=== PATIENT | female | born 1945 | race Caucasian/White ===

== ENCOUNTER 2024-06-05 13:54 | Observation (INO) | payer OTHER ==
[~2024-06-05] VITALS: Ht 167.6 cm; Wt 104.1 kg
--- NOTE | 2024-06-05 15:12 | HMCIMG ---
CT ABDOMEN/PELVIS W/O CONTRAST HISTORY: Bilateral flank pain COMPARISON: None TECHNIQUE: Multiple sequential axial images of the abdomen and pelvis were obtained from the dome of the diaphragm through symphysis pubis. Patient was not given contrast through intravenous route. Oral contrast was not given. FINDINGS: No pleural effusion is seen bilaterally. There is no evidence of parenchymal disease or pulmonary nodule of the visualized lower lungs. Degenerative changes of the thoracolumbar spine are present. The heart is not enlarged. A small hiatal hernia is seen. Liver measures 18 cm. There is left adrenal nodule measuring 2 cm suggestive of adrenal adenoma. Postcholecystectomy changes are seen. There is right renal cyst measuring 2.3 cm. Bilateral renal cortical scarring is seen. The liver, spleen, right adrenal gland and pancreas are unremarkable. There is no evidence of hydronephrosis bilaterally. There are bilateral renal stones with the largest in the left kidney measuring 2.7 cm. There is diverticulosis. Fecal material is seen in the colon. There are normal size retroperitoneal and mesenteric lymph nodes. No ascites is seen. Atherosclerotic changes are present. Pelvic sidewalls are symmetric bilaterally. Bladder is poorly distended. IMPRESSION: 1. Left renal nodule measuring 2 cm suggestive adrenal adenoma. No hydronephrosis is seen. There are multiple left renal pelvic stones. Bilateral renal cortical scarring is seen. There is fluid-filled with small bowel loops and colon may be related to enterocolitis. There is diverticulosis. CT was performed with one or more following dose reduction techniques: automated exposure control, adjustment of the mA and kv according to patient's size, or use of a iterative reconstruction technique.
[2024-06-05 16:15] LABS: BASOPHILS # (AUTO) 0.03 K/uL (0.00-0.20); BASOPHILS % (AUTO) 0.4 % (0.0-5.0); EOSINOPHILS # (AUTO) 0.21 K/uL (0.00-0.70); EOSINOPHILS % (AUTO) 2.8 % (0.0-8.0); IMMATURE GRANULOCYTE ABSOLUTE 0.04 K/uL (0-1); LYMPHOCYTES # (AUTO) 1.4 K/uL (1.0-4.8); LYMPHOCYTES % (AUTO) 18.3 % (21.0-51.0); MEAN CORPUSCULAR HEMOGLOBIN 30.3 pg (27.0-33.0); MEAN CORPUSCULAR HGB CONC 33.4 g/dL (32.0-36.0); MEAN CORPUSCULAR VOLUME 90.7 fL (79-99); MONOCYTES % (AUTO) 13.2 % (3.0-13.0); NEUTROPHILS # (AUTO) 4.9 K/uL (1.8-7.7); NEUTROPHILS % (AUTO) 64.8 % (40.0-77.0); PLATELET COUNT (AUTO) 211 K/uL (130-400); RED BLOOD CELL COUNT(AUTO) 4.52 MIL/uL (4.00-5.50); RED CELL DISTRIBUTION WIDTH 12.9 % (11.0-15.5); WHITE BLOOD COUNT (AUTO) 7.6 K/uL (4.8-10.8)
[2024-06-05 16:22] LABS: INR 1.02 (0.85-1.15); PROTHROMBIN TIME 10.8 SEC (9.6-11.6)
[2024-06-05 16:23] LABS: PARTIAL THROMBOPLASTIN TIME 26.5 SEC (26.3-35.5)
[2024-06-05 16:28] LABS: APPEARANCE,URINE CLOUDY (CLEAR); BILIRUBIN,URINE NEGATIVE (NEGATIVE); COLOR,URINE YELLOW (YELLOW); GLUCOSE, URINE (UA) NEGATIVE (NEGATIVE); KETONES,URINE NEGATIVE (NEGATIVE); LEUKOCYTE ESTERASE ,URINE 500 Leu/uL (NEGATIVE); NITRATE,URINE NEGATIVE (NEGATIVE); OCCULT BLOOD,URINE MODERATE (NEGATIVE); PROTEIN,URINE 70 mg/dL (NEGATIVE)
[2024-06-05 16:36] LABS: ALBUMIN 3.4 g/dL (3.5-5.0); BILIRUBIN,DIRECT 0.1 mg/dL (0.0-0.3); BILIRUBIN,TOTAL 0.5 mg/dL (0.2-1.0); CREATININE 0.8 mg/dL (0.5-1.0); TOTAL PROTEIN, SERUM 7.1 g/dL (6.0-8.3)
[2024-06-05 16:41] LABS: BACTERIA,URINE RARE /HPF (None Seen); MUCUS,URINE MOD LPF (None Seen); NON-SQUAMOUS EPITHELIAL CELL 4 /HPF (0-2); OTHER CASTS, URINE 3 /LPF (None Seen); RBC,URINE 26-50 /HPF (0-1); SQUAMOUS EPITHELIAL CELL,UR MOD /HPF (0-2); WBC,URINE 26-50 /HPF (0-1)
--- NOTE | 2024-06-05 16:56 | ERN ---
ED Note History of Present Illness Stated Complaint: DIARRHEA Chief Complaint: Flank Pain Time Seen by MD: 14:04 Time Seen by Midlevel: 14:04 Dictation: 78-year-old female with a history of kidney stones presents to the ED for evaluation of left flank pain onset two days ago. Patient is complaining of hematuria, vomiting, and diarrhea, but denies any chest pain, shortness of breath or any other associated symptoms at this time. PMHx kidney stones, gout, HTN Allergies: Coded Allergies: acetaminophen (Unverified Allergy, Intermediate, 06/05/24) hydrocodone (Unverified Allergy, Intermediate, 06/05/24) ketorolac (Unverified Allergy, Mild, RASH, 06/05/24) Home Meds Reported Medications Allopurinol (Allopurinol) 100 Mg Tablet, 1 TAB PO DAILY for 30 Days, #30 TAB 0 Refills 06/05/24 Metoprolol Tartrate (Metoprolol Tartrate) 25 Mg Tablet, 1 TAB PO BID for 30 Days, #60 TAB 0 Refills 06/05/24 Hydrochlorothiazide (Hydrochlorothiazide) 25 Mg Tablet, 25 MG PO BID, TAB 06/05/24 Past Medical History Past Medical History: Hypertension, Kidney Infection, Kidney Stone, Pancreatitis, Other Additional Past Medical Hx: GOUT Surgical History: Appendectomy, Cholecystectomy, Other Surgical History Other: HERNIA Review of System Dictation Constitutional: Negative for fever,chills, and weight loss Eyes: Negative for injury, pain,redness, and discharge ENT: Negative for injury,pain or swelling Cardiovascular: Negative for chest pain, palpitations, and edema Respiratory: Negative for shortness of breath, cough, and wheezing, Abdomen/GI: Positive for flank pain, vomiting, diarrhea Back: Negative for injury and pain : Positive for hematuria Negative for injury and discharge MS/Extremity: Negative for injury and deformity Skin: Negative for rash, and discoloration Neuro: Negative for headache, weakness, numbness, tingling, and seizure Psych: Negative for suicide ideation, homicidal ideation, and hallucinations Initial Vital Sign VS Vital Signs Date Time Temp Pulse Resp B/P (MAP) Pulse Ox O2 Delivery O2 Flow Rate FiO2 06/05/24 14:19 99.9 87 20 133/68 96 Room Air 0 Physical Exam Dictation General: awake, alert, NAD Head/Face: Normocephalic, atraumatic Eyes: PERRL, EOMI, normal conjunctiva ENT: oral cavity clear, no signs of infection Neck: Supple, normal range of motion Cardiovascular: RRR, normal S1/S2 Respiratory: CTAB, no respiratory distress, no rales or wheezes Abdomen: Left CVA tenderness, non-distended, no abdominal tenderness, no guarding or rebound. Skin: Warm, dry, normal turgor, no rash MS/Extremity: Pulses equal, no cyanosis, neurovascular intact, FROM Neuro: COAx4, GCS 15, no neurological deficits, normal gait Psych: Normal behavior, mood, and affect normal Results (Laboratory/Radiology) Laboratory/Radiology Laboratory Tests Test 06/05/24 15:50 06/05/24 15:58 Urine Color YELLOW (YELLOW) Urine Appearance CLOUDY (CLEAR) H Urine pH 6.0 (5.0-8.0) Urine Specific [place] 1.028 (1.001-1.031) Urine Protein 70 mg/dL (NEGATIVE) H Urine Glucose (UA) NEGATIVE mg/dL (NEGATIVE) Urine Ketones NEGATIVE mg/dL (NEGATIVE) Urine Occult Blood MODERATE (NEGATIVE) H Urine Nitrate NEGATIVE (NEGATIVE) Urine Bilirubin NEGATIVE mg/dL (NEGATIVE) Urine Urobilinogen 2.0 mg/dL (0.2-1.0) H Urine Leukocyte Esterase 500 Randy/uL (NEGATIVE) H Urine RBC 26-50 /HPF (0-1) H Urine WBC 26-50 /HPF (0-1) H Urine Squamous Epithelial Cells MOD /HPF (0-2) Urine Non-Squamous Epithelial Cells 4 /HPF (0-2) Urine Bacteria RARE /HPF (None Seen) Urine Hyaline Casts 2-5 /LPF (0-1 /LPF) H Urine Other Casts 3 /LPF (None Seen) White Blood Count 7.6 K/uL (4.8-10.8) Red Blood Count 4.52 MIL/uL (4.00-5.50) Hemoglobin 13.7 g/dL (12.0-16.0) Hematocrit 41.0 % (36-48) Mean Corpuscular Volume 90.7 fL (79-99) Mean Corpuscular Hemoglobin 30.3 pg (27.0-33.0) Mean Corpuscular Hemoglobin Concent 33.4 g/dL (32.0-36.0) Red Cell Distribution Width 12.9 % (11.0-15.5) Platelet Count 211 K/uL (130-400) Mean Platelet Volume 9.3 fL (7.5-10.5) Immature Granulocyte % (Auto) 0.5 % (0-1) Neutrophils (%) (Auto) 64.8 % (40.0-77.0) Lymphocytes (%) (Auto) 18.3 % (21.0-51.0) L Monocytes (%) (Auto) 13.2 % (3.0-13.0) H Eosinophils (%) (Auto) 2.8 % (0.0-8.0) Basophils (%) (Auto) 0.4 % (0.0-5.0) Neutrophils # (Auto) 4.9 K/uL (1.8-7.7) Lymphocytes # (Auto) 1.4 K/uL (1.0-4.8) Monocytes # (Auto) 1.0 K/uL (0.1-1.0) Eosinophils # (Auto) 0.21 K/uL (0.00-0.70) Basophils # (Auto) 0.03 K/uL (0.00-0.20) Absolute Immature Granulocyte (auto 0.04 K/uL (0-1) Nucleated Red Blood Cells 0.0 % (0.0-0.19) Prothrombin Time 10.8 SEC (9.6-11.6) Prothromb Time International Ratio 1.02 (0.85-1.15) Activated Partial Thromboplast Time 26.5 SEC (26.3-35.5) Sodium Level 141 mmol/L (136-145) Potassium Level 3.0 mmol/L (3.5-5.1) *L Chloride Level 103 mmol/L (101-111) Carbon Dioxide Level 31 mmol/L (21-32) Blood Urea Nitrogen 19 mg/dL (7-18) H Creatinine 0.8 mg/dL (0.5-1.0) Glomerular Filtration Rate Calc 76 mL/min (>90) Random Glucose 108 mg/dL (70-105) H Total Calcium 9.4 mg/dL (8.5-10.1) Total Bilirubin 0.5 mg/dL (0.2-1.0) Direct Bilirubin 0.1 mg/dL (0.0-0.3) Aspartate Amino Transf (AST/SGOT) 30 U/L (10-37) Alanine Aminotransferase (ALT/SGPT) 25 U/L (12-78) Alkaline Phosphatase 76 U/L (50-136) Total Protein 7.1 g/dL (6.0-8.3) Albumin 3.4 g/dL (3.5-5.0) L Lipase 22 U/L (16-77) Labs Reviewed?: Yes CT Scan Comment: REASON: L flank pain ORDERING PHYSICIAN: ISAIAS MEYERS PROCEDURE: ABD PEL WO - CT ABDOMEN/PELVIS W/O CONTRAST CT ABDOMEN/PELVIS W/O CONTRAST HISTORY: Bilateral flank pain COMPARISON: None TECHNIQUE: Multiple sequential axial images of the abdomen and pelvis were obtained from the dome of the diaphragm through symphysis pubis. Patient was not given contrast through intravenous route. Oral contrast was not given. FINDINGS: No pleural effusion is seen bilaterally. There is no evidence of parenchymal disease or pulmonary nodule of the visualized lower lungs. Degenerative changes of the thoracolumbar spine are present. The heart is not enlarged. A small hiatal hernia is seen. Liver measures 18 cm. There is left adrenal nodule measuring 2 cm suggestive of adrenal adenoma. Postcholecystectomy changes are seen. There is right renal cyst measuring 2.3 cm. Bilateral renal cortical scarring is seen. The liver, spleen, right adrenal gland and pancreas are unremarkable. There is no evidence of hydronephrosis bilaterally. There are bilateral renal stones with the largest in the left kidney measuring 2.7 cm. There is diverticulosis. Fecal material is seen in the colon. There are normal size retroperitoneal and mesenteric lymph nodes. No ascites is seen. Atherosclerotic changes are present. Pelvic sidewalls are symmetric bilaterally. Bladder is poorly distended. IMPRESSION: 1. Left renal nodule measuring 2 cm suggestive adrenal adenoma. No hydronephrosis is seen. There are multiple left renal pelvic stones. Bilateral renal cortical scarring is seen. There is fluid-filled with small bowel loops and colon may be related to enterocolitis. There is diverticulosis. CT was performed with one or more following dose reduction techniques: automated exposure control, adjustment of the mA and kv according to patient's size, or use of a iterative reconstruction technique. DICTATED BY: SAHIL FIORE MD DATE: 06/05/24 1505 ED Course ED Course Orders Procedure Category Date Status Time Cbc With Differential LAB 06/05/24 Complete 14:32 Basic Metabolic Panel LAB 06/05/24 Complete 14:32 Hepatic Function Panel LAB 06/05/24 Complete 14:32 Urinalysis LAB 06/05/24 Complete W/Microscopic 14:32 Pt And Ptt LAB 06/05/24 Complete 14:32 Ct Abdomen/Pelvis W/O CT 06/05/24 Resulted Contrast 14:34 Lipase LAB 06/05/24 Complete 14:32 Culture Urine CHATO 06/05/24 In Process 16:36 Potassium Bicarb/Cit PHA 06/05/24 Complete Ac 25meq (K-Lyte Ta 17:00 Ketorolac PHA 06/05/24 Complete Tromethamine 15mg/Ml 17:00 Ceftriaxone 1g Vial PHA 06/05/24 Complete (Rocephine 1g Inj) 17:00 0.9%Nacl 1000ml (Ns PHA 06/05/24 Complete 1000ml) 17:00 Vital Signs(Adult CPOE 06/05/24 Transmitted Hospitalist) 19:17 Daily Weights CPOE 06/05/24 Transmitted 19:17 I&O Q Shift CPOE 06/05/24 Transmitted 19:17 Acetaminophen 325 Tab PHA 06/05/24 In Process (Tylenol 325mg Tab 19:30 Acetaminophen 325 Tab PHA 06/05/24 In Process (Tylenol 325mg Tab 19:30 Ondansetron 4mg Inj PHA 06/05/24 In Process (Zofran 4mg Inj) 19:30 Nurse To Enter Home CPOE 06/05/24 Transmitted Medication 19:17 Admit Orders ADM 06/05/24 Transmitted 19:17 Condition: CPOE 06/05/24 Transmitted 19:17 Activity: Br W/Brp CPOE 06/05/24 Transmitted With Assist 19:17 Heart Healthy Diet DIET 06/06/24 Transmitted Breakfast Apply Scds CPOE 06/05/24 Transmitted 19:17 0.9%Nacl 1000ml (Ns PHA 06/05/24 In Process 1000ml) 19:30 Ceftriaxone 1g Vial PHA 06/05/24 Complete (Rocephine 1g Inj) 21:00 Famotidine 20mg Vial PHA 06/05/24 In Process (Pepcid 20mg Vial) 21:00 Magnesium 2gm Premix PHA 06/05/24 In Process 50ml (Magnesium 2gm 19:30 Initiate Po RIO 06/05/24 In Process Hypokalemia Protoc 19:17 Potassium Chloride PHA 06/05/24 In Process 20meq/100ml ([place] 19:30 Potassium Chl 10% PHA 06/05/24 In Process Elixir 20meq (Kcl 10% 19:30 Potassium Chloride PHA 06/05/24 In Process 20meq Er (K-Dur/Klor- 19:30 Notify Physician If CPOE 06/05/24 Transmitted There Is 19:17 Notify Md On The Next CPOE 06/05/24 Transmitted 19:17 Notify Md On The CPOE 06/05/24 Transmitted Next(Cont.) 19:17 Urology Consult CONPHYSVC 06/05/24 Transmitted 19:17 Cbc With Differential LAB 06/06/24 Verified 04:00 Comprehensive LAB 06/06/24 Verified Metabolic Panel 04:00 Magnesium LAB 06/06/24 Verified 04:00 Stool Panel Gi By Pcr LAB 06/05/24 Logged 19:17 Ova And Parasite CHATO 06/05/24 Logged 19:17 Ceftriaxone 1g Vial PHA 06/05/24 In Process (Rocephine 1g Inj) 21:00 Current Medications Medications (Trade) Dose Ordered Sig/Con Route PRN Reason Start Time Stop Time Status Last Admin Dose Admin Ceftriaxone Sodium (ROCEphine 1G INJ) 1 gm ONCE ONCE IVPB 06/05/24 17:00 06/05/24 17:01 DC 06/05/24 17:37 Ketorolac Tromethamine (toRADol) 15 mg ONCE ONCE IV 06/05/24 17:00 06/05/24 17:01 DC Potassium Bicarbonate (K-Lyte Tablet Eff 25 Meq Tablet.eff) 50 meq ONCE ONCE PO 06/05/24 17:00 06/05/24 17:01 DC 06/05/24 17:37 Sodium Chloride 1,000 ml @ 0 mls/hr ONCE ONCE IV 06/05/24 17:00 06/05/24 17:01 DC 06/05/24 17:37 Vital Signs Date Time Temp Pulse Resp B/P (MAP) Pulse Ox O2 Delivery O2 Flow Rate FiO2 06/05/24 14:19 99.9 87 20 133/68 96 Room Air 0 Medical Decision Making MDM MDM: Differential diagnosis: Kidney stones, diarrhea, flank pain, UTI Rationale: 78-year-old female with a history of kidney stones presents to the ED for evaluation of left flank pain onset two days ago. Patient is complaining of hematuria, vomiting, and diarrhea, but denies any chest pain, shortness of breat h or any other associated symptoms at this time. PMHx kidney stones, gout, HTN Per physical examination patient has left CVA tenderness, in no acute distress. Labs indicated no elevated WBC, potassium 3.0, UA indicates urinary tract infection. Patient was administered K-Lyte ketorolac, Rocephin, and IV fluids in the ED. CT abdomen and pelvis obtained indicating left kidney nodule measuring 2 cm possible adrenal adenoma, renal cyst measuring 2.3 cm, and bilateral kidney stones in the kidney largest measuring 2.7 cm. Patient was educated on findings, diagnosis, and decision for admission. Patient verbalized understanding and agrees with admission. Case was discussed with hospitalist who accepted admission. Risk of complication and/or morbidity or mortality of patient management: None Medications-Per medication reconciliation Need for hospitalization: Patient does meet criteria for hospitalization. Need for emergency major/minor surgery: No There are no social concerns with this patient. I independently interpreted the test that were performed, results were reviewed by me and considered findings on radiology if ordered. Medical management and examination interpretation discussions were had by me with other qualified healthcare professionals as indicated for the patient's care. DX & DISP Disposition: Inpatient Decision to Admit Date: Jun 05, 2024 Departure Impression: Primary Impression: Urinary tract infection Additional Impressions: Pyelonephritis, Nephrolithiasis, Hypokalemia, Diarrh ea, Mild dehydration Condition: Stable Referrals: NONE (PCP) I have reviewed, & agreed with my scribe's, documentation. (I, Hayden Guzman, am scribing for CRISSY Meyers) I performed the substantive portion of the visit. I have reviewed and personally made and approve the management plan that is documented in the notes by myself or the RUPINDER. I acknowledge full responsibility for the patient's management plan. I personally scribed for ISAIAS MEYERS ([email or web address]) on 06/05/24 at 16:56. Electronically submitted by Hayden Guzman ([email or web address]). I personally scribed for ISAIAS MEYERS ([email or web address]) on 06/05/24 at 16:57. Electronically submitted by Hayden Guzman ([email or web address]). ISAIAS MEYERS Jun 05, 2024 16:56 MILAGROS NOBLE MD Jun 05, 2024 18:41
[2024-06-05] MEDS: PoTASSium BIcarbonate/CIT AC 25 MEQ TABLET.EFF PO ONE (17:37)
[2024-06-05] MEDS: 0.9%NACL 1000ML 1,000 ML IV ONE (17:37)
[2024-06-05] MEDS: cefTRIAXone 1G VIAL IVPB ONE (17:37)
[2024-06-05] MEDS: ketOROlac 15MG/ML VIAL (15MG/ML) IV ONE (17:44)
--- NOTE | 2024-06-05 18:50 | NUR ---
[facility]OSPITALIST AT BEDSIDE FOR ADMISSION. PT IS AOX4 DENIES PAIN AT THIS TIME.
[2024-06-05] MEDS ORDERED: METO25TA6 PO (18:59)
[2024-06-05] MEDS ORDERED: HYDR25TA PO (18:59)
[2024-06-05] MEDS ORDERED: ALLO100T PO (18:59)
--- NOTE | 2024-06-05 19:28 | HP ---
[facility] HISTORY AND PHYSICAL Date of Service: Jun 05, 2024 Time of Service: 19:28 PCP: Self-referral HISTORY OF PRESENT ILLNESS: This is a 78-year-old female winter [place] from [facility] [place] , a retired nurse by profession with past medical history of hypertension, kidney stone and gout who presents to the ED for complaints of left flank pain, nausea, vomiting, diarrhea which started three days ago. Patient states she has not been able to keep anything down for the past three days. Patient reports approximately she has 13 episodes of diarrhea and vomiting at the same time for the past three days nausea vomiting and diarrhea has stopped until 1:00 a.m. today she said. Patient denies any unusual food consumption. Seen and examined patient in the ER awake alert and coherent, appears comfortable. Patient reports she has pressure around the suprapubic area on palpation. Patient denies fever, cough, chest pain, palpitation and shortness of breaths. Latest vital signs temperature 99.9, heart rate 87, blood pressure 133/68 saturation 96% on room air. Labs: CBC unremarkable. Potassium 3.0, BUN 19, glucose 108, albumin 3.4. Urinalysis consistent with urinary tract infection. CT abdomen and pelvis without contrast result revealed left renal nodule measuring 2 cm suggestive adrenal adenoma. No hydronephrosis is seen. There are multiple left renal pelvic stones. Bilateral renal cortical scarring is seen. There is fluid-filled with small bowel loops and colon may be related to enterocolitis. There is diverticulosis. While in the ER patient received 1 L IV NS bolus, Rocephin 1 g IV, Toradol 15 mg IV, K-Lyte 50 mEq p.o. ER called and recommended to admit the patient. REVIEW OF SYSTEMS CONSTITUTIONAL: Denies fevers, chills, or night sweats. No unintentional weight loss reported. NEUROLOGICAL: Denies headache, amaurosis fugax, motor weakness, sensory deficit, vertigo/spinning sensation, gait abnormalities, or tremors. ENT: No hearing loss, otalgia, otorrhea, rhinitis, rhinorrhea, hoarseness, or sore throat. CARDIOVASCULAR: Denies any exertional angina, dyspnea on exertion, orthopnea, paroxysmal nocturnal dyspnea, palpitations, life-threatening arrhythmias, claudication. PULMONARY: Denies any shortness of breath, cough, phlegm/sputum, hemoptysis, pleuritic chest pain. SLEEP: Denies morning headaches, daytime somnolence or napping. Denies difficu lty falling asleep, staying asleep, waking from sleep. Denies knowledge of snoring. GASTROINTESTINAL: Complained of suprapubic pressure on palpation, nausea, vomiting and diarrhea Denies any type of dysphagia to either liquids or solids. Denies pyrosis, early satiety, constipation, or changes in stool consistency or caliber. Denies coffee-ground emesis, hematemesis, hematochezia, or melanotic stools. GENITOURINARY: Denies frequency, urgency, nocturia, hematuria or incontinence (Storage/Irritative symptoms.) Low urinary stream, straining to void, urinary intermittency or hesitancy, splitting of the voiding stream, terminal dribbling. ENDOCRINOLOGIC: Denies polyuria, polydipsia, polyphagia or heat/cold intolerances. HEMATOLOGIC: Denies thrombophilia/previous clots, or coagulopathy/bleeding disorders. ONCOLOGIC: Denies personal history of malignancy. DERMATOLOGIC: Denies rashes or pruritus. PSYCHIATRIC: Denies any suicidal or homicidal ideation. Denies hallucinations. PAST MEDICAL HISTORY: Hypertension , kidney stone and gout PAST SURGICAL HISTORY: Tonsillectomy, adenoidectomy, appendectomy, cholecystectomy, umbilical hernia repair, left kidney surgery [place] [age] PAST SOCIAL HISTORY: Patient lives with . Patient is a winter [place] from [place]. Patient is a retired nurse. Patient denies alcohol tobacco and recreational drug use. FAMILY HISTORY: Noncontributory Coded Allergies: acetaminophen (Unverified Allergy, Intermediate, 06/05/24) hydrocodone (Unverified Allergy, Intermediate, 06/05/24) ketorolac (Unverified Allergy, Mild, RASH, 06/05/24) PHYSICAL EXAM GENERAL APPEARANCE: The patient is awake, alert, and oriented, in no acute cardiopulmonary distress. NEUROLOGICAL: Cranial nerves II-XII grossly intact. Motor is 5/5 in bilateral upper and lower extremities proximal to distal. No sensory deficits. HEENT: Face is symmetric. Pupils are equal and reactive. Extraocular movements are intact. NECK: Supple. No JVD. No thyromegaly. No submental, submandibular, pre- /postauricular, occipital or supraclavicular lymphadenopathy. CHEST: Normal chest expansion. No Telemetry. LUNGS: Absence of any rales, rhonchi or any wheezing. CARDIOVASCULAR: Regular. S1 and S2 normal. No appreciable rubs, murmurs or gallops. ABDOMEN: Soft, nontender, and nondistended. There is no rebound, voluntary guarding, or rigidity. : Deferred. No Silva. EXTREMITIES: Non-edematous and not cyanotic. No clubbing. Good capillary refill. SKIN: No skin breakdown. Vital Sign (Last 24 Hours) 06/05/24 14:19 Temp 99.9 Pulse 87 Resp 20 B/P (MAP) 133/68 Pulse Ox 96 O2 Delivery Room Air O2 Flow Rate 0 LABS: Laboratory: Test 06/05/24 15:58 06/05/24 15:50 Range/Units White Blood Count 7.6 4.8-10.8 K/uL Red Blood Count 4.52 4.00-5.50 MIL/uL Hemoglobin 13.7 12.0-16.0 g/dL Hematocrit 41.0 36-48 % Mean Corpuscular Volume 90.7 79-99 fL Mean Corpuscular Hemoglobin 30.3 27.0-33.0 pg Mean Corpuscular Hemoglobin Concent 33.4 32.0-36.0 g/dL Red Cell Distribution Width 12.9 11.0-15.5 % Platelet Count 211 130-400 K/uL Mean Platelet Volume 9.3 7.5-10.5 fL Immature Granulocyte % (Auto) 0.5 0-1 % Neutrophils (%) (Auto) 64.8 40.0-77.0 % Lymphocytes (%) (Auto) 18.3 L 21.0-51.0 % Monocytes (%) (Auto) 13.2 H 3.0-13.0 % Eosinophils (%) (Auto) 2.8 0.0-8.0 % Basophils (%) (Auto) 0.4 0.0-5.0 % Neutrophils # (Auto) 4.9 1.8-7.7 K/uL Lymphocytes # (Auto) 1.4 1.0-4.8 K/uL Monocytes # (Auto) 1.0 0.1-1.0 K/uL Eosinophils # (Auto) 0.21 0.00-0.70 K/uL Basophils # (Auto) 0.03 0.00-0.20 K/uL Absolute Immature Granulocyte (auto 0.04 0-1 K/uL Nucleated Red Blood Cells 0.0 0.0-0.19 % Prothrombin Time 10.8 9.6-11.6 SEC Prothromb Time International Ratio 1.02 0.85-1.15 Activated Partial Thromboplast Time 26.5 26.3-35.5 SEC Sodium Level 141 136-145 mmol/L Potassium Level 3.0 *L 3.5-5.1 mmol/L Chloride Level 103 101-111 mmol/L Carbon Dioxide Level 31 21-32 mmol/L Blood Urea Nitrogen 19 H 7-18 mg/dL Creatinine 0.8 0.5-1.0 mg/dL Glomerular Filtration Rate Calc 76 >90 mL/min Random Glucose 108 H 70-105 mg/dL Total Calcium 9.4 8.5-10.1 mg/dL Total Bilirubin 0.5 0.2-1.0 mg/dL Direct Bilirubin 0.1 0.0-0.3 mg/dL Aspartate Amino Transf (AST/SGOT) 30 10-37 U/L Alanine Aminotransferase (ALT/SGPT) 25 12-78 U/L Alkaline Phosphatase 76 50-136 U/L Total Protein 7.1 6.0-8.3 g/dL Albumin 3.4 L 3.5-5.0 g/dL Lipase 22 16-77 U/L Urine Color YELLOW YELLOW Urine Appearance CLOUDY H CLEAR Urine pH 6.0 5.0-8.0 Urine Specific [place] 1.028 1.001-1.031 Urine Protein 70 H NEGATIVE mg/dL Urine Glucose (UA) NEGATIVE NEGATIVE mg/dL Urine Ketones NEGATIVE NEGATIVE mg/dL Urine Occult Blood MODERATE H NEGATIVE Urine Nitrate NEGATIVE NEGATIVE Urine Bilirubin NEGATIVE NEGATIVE mg/dL Urine Urobilinogen 2.0 H 0.2-1.0 mg/dL Urine Leukocyte Esterase 500 H NEGATIVE Randy/uL Urine RBC 26-50 H 0-1 /HPF Urine WBC 26-50 H 0-1 /HPF Urine Squamous Epithelial Cells MOD 0-2 /HPF Urine Non-Squamous Epithelial Cells 4 0-2 /HPF Urine Bacteria RARE None Seen /HPF Urine Hyaline Casts 2-5 H 0-1 /LPF /LPF Urine Other Casts 3 None Seen /LPF DIAGNOSTICS / RADIOLOGY: [ ] ASSESSMENT: Acute urinary tract infection with hematuria POA Left kidney stone POA Possible enterocolitis POA Dehydration POA Left adrenal adenoma per CT POA Hypertension POA Gout POA History of kidney stone with left kidney surgery POA PLAN: We will admit patient in medical surgical We will start on heart healthy diet We will start NS @ 100 ml / hr x2 bags and re evaluate We will start patient on Rocephin 1 g IV b.i.d. for empiric coverage We will start on Famotidine 20 mg IV bid for GI prophylaxis We will replace electrolytes as needed per protocol We will add prn medication for fever,pain,cough ,nausea and vomiting We will reconcile home meds once medlist available We will request stool GI panel ova and parasite and follow-up result We will seek Urology consultation We will request labs in am Further orders to follow depending on above results Case discussed with attending physician and came up with above treatment and plan of care. ADVANCED CARE PLANNING 1. Which of the following were discussed? Hospice Care - No Therapeutic options - Yes Advance Directives - No Other discussions - 2. Discussed with who? Patient 3. Voluntary nature of this service was explained to the patient? Yes 4. Amount of time spent - _22 5. Reviewed by Physician? (if this service was performed by NPP) Yes Patient seen and examined by me. Agree with note by JUNIOR TECHNICAL WRITER SEE ADDITIONAL ORDERS PER CHART DISCUSSED WITH NURSING STAFF HARRIETT RODP Jun 05, 2024 19:28
[2024-06-05] MEDS ORDERED: acetaMINOPHEN 325 MG TAB PO PRN ×2 (19:30)
[2024-06-05] MEDS ORDERED: MAGNESIUM 2GM PREMIX 50ML 50 ML IV PRN (19:30)
[2024-06-05] MEDS ORDERED: PoTASSium chl 10% ELIXIR 20MEQ 20 MEQ/15 ML UDCUP PO PRN (19:30)
[2024-06-05] MEDS: cefTRIAXone 1G VIAL IVPB SCH (19:54)
[2024-06-05] MEDS: FAMOTIDINE 20MG VIAL IV SCH (19:59)
[2024-06-05] MEDS: 0.9%NACL 1000ML 1,000 ML IV SCH (19:59)
[2024-06-05] MEDS ORDERED: cefTRIAXone 1G VIAL 1 GM in 0.9%NACL 50ML 50 ML IV SCH (21:00)
[2024-06-06] VITALS (7 sets, daily range): BP systolic 100–150; BP diastolic 43–67; PULSE 68–113; RESP 16–20; TEMP 97.3–98.2; O2SAT 94–98
[2024-06-06] MEDS: DIPHENOXYLATE HCL/ATROPINE 2.5/0.025 MG TAB PO ONE (00:20)
[2024-06-06] MEDS ORDERED: HYDR12.54 PO (03:13)
[2024-06-06] MEDS ORDERED: ZINC220T4 PO (03:17)
[2024-06-06] MEDS ORDERED: BIOT5000 PO (03:17)
[2024-06-06] MEDS ORDERED: VITA1CAP PO (03:17)
[2024-06-06 06:57] LABS: BASOPHILS # (AUTO) 0.02 K/uL (0.00-0.20); BASOPHILS % (AUTO) 0.3 % (0.0-5.0); EOSINOPHILS % (AUTO) 2.9 % (0.0-8.0); IMMATURE GRANULOCYTE ABSOLUTE 0.04 K/uL (0-1); LYMPHOCYTES # (AUTO) 2.3 K/uL (1.0-4.8); LYMPHOCYTES % (AUTO) 32.8 % (21.0-51.0); MEAN CORPUSCULAR HEMOGLOBIN 30.5 pg (27.0-33.0); MEAN CORPUSCULAR HGB CONC 33.3 g/dL (32.0-36.0); MEAN CORPUSCULAR VOLUME 91.4 fL (79-99); MONOCYTES # (AUTO) 0.9 K/uL (0.1-1.0); MONOCYTES % (AUTO) 13.1 % (3.0-13.0); NEUTROPHILS # (AUTO) 3.5 K/uL (1.8-7.7); NEUTROPHILS % (AUTO) 50.3 % (40.0-77.0); PLATELET COUNT (AUTO) 172 K/uL (130-400); RED BLOOD CELL COUNT(AUTO) 3.94 MIL/uL (4.00-5.50); RED CELL DISTRIBUTION WIDTH 12.9 % (11.0-15.5); WHITE BLOOD COUNT (AUTO) 6.9 K/uL (4.8-10.8)
[2024-06-06 07:13] LABS: ALBUMIN 2.8 g/dL (3.5-5.0); BILIRUBIN,TOTAL 0.7 mg/dL (0.2-1.0); CREATININE 0.7 mg/dL (0.5-1.0); MAGNESIUM 1.5 mg/dL (1.80-2.40); TOTAL PROTEIN, SERUM 5.7 g/dL (6.0-8.3)
[2024-06-06 07:37] LABS: POTASSIUM 2.7 mmol/L (3.5-5.1)
[2024-06-06] MEDS: PoTASSium chloRIDE 20MEQ/100ML 100 ML IV PRN (08:06)
--- NOTE | 2024-06-06 10:06 | NUR ---
DCP Patient states visiting son, Sapphire Monteiro, Daughter in Law [phone] unit August 2024; staying in a house with walk in shower. 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 States States able to complete ADL's on her own. Denies medical devices. Denies home health services, home care provider or dialysis. PCP - [facility] - Jeannette Haro. Upon discharge, Sapphire Monterio, Viviane in Law [phone] and family will assist with care as needed. Addendum: 06/06/24 at 1012 by NAYAN PEREZ RN Amended: Links added.
--- NOTE | 2024-06-06 10:33 | NUR ---
PROVIDER NOTIFICATION: UROLOGY CONSULT Notified physician office of urology consult. Name and phone number of nurse left with office. Pending call back
[2024-06-06] MEDS: ondanSETRON 4MG INJ IV PRN (11:29)
[2024-06-06] MEDS: PoTASSium chloRIDE 20MEQ ER 20 MEQ ERTAB PO PRN (11:29)
[2024-06-06] MEDS ORDERED: hydrALAZine 20MG/ML VIAL IV PRN (11:30)
[2024-06-06] MEDS: MAGNESIUM 2GM PREMIX 50ML 50 ML IV SCH (12:40)
--- NOTE | 2024-06-06 14:23 | PN ---
[facility] PROGRESS NOTE Date of Service: Jun 06, 2024 Time of Service: 14:13 SUBJECTIVE: [ ] This is a 78-year-old female that presents in ED on 06/05/2024 with chief complaints of left flank pain nausea and vomiting and diarrhea. ER workup was consistent with left kidney stone. Urology was consulted we will follow his recommendations. We will replace electrolytes. Patient is fully awake alert oriented x3. Discussed plan of care verbalized understanding. REVIEW OF SYSTEMS CONSTITUTIONAL: Denies fevers, chills, or night sweats. No unintentional weight loss reported. NEUROLOGICAL: Denies headache, amaurosis fugax, motor weakness, sensory deficit, vertigo/spinning sensation, gait abnormalities, or tremors. ENT: No hearing loss, otalgia, otorrhea, rhinitis, rhinorrhea, hoarseness, or sore throat. CARDIOVASCULAR: Denies any exertional angina, dyspnea on exertion, orthopnea, paroxysmal nocturnal dyspnea, palpitations, life-threatening arrhythmias, claudication. PULMONARY: Denies any shortness of breath, cough, phlegm/sputum, hemoptysis, pleuritic chest pain. SLEEP: Denies morning headaches, daytime somnolence or napping. Denies difficulty falling asleep, staying asleep, waking from sleep. Denies knowledge of snoring. GASTROINTESTINAL: Complained of suprapubic pressure on palpation, nausea, vomiting and diarrhea Denies any type of dysphagia to either liquids or solids. Denies pyrosis, early satiety, constipation, or changes in stool consistency or caliber. Denies coffee-ground emesis, hematemesis, hematochezia, or melanotic stools. GENITOURINARY: Denies frequency, urgency, nocturia, hematuria or incontinence (Storage/Irritative symptoms.) Low urinary stream, straining to void, urinary intermittency or hesitancy, splitting of the voiding stream, terminal dribbling. ENDOCRINOLOGIC: Denies polyuria, polydipsia, polyphagia or heat/cold intolerances. HEMATOLOGIC: Denies thrombophilia/previous clots, or coagulopathy/bleeding disorders. ONCOLOGIC: Denies personal history of malignancy. DERMATOLOGIC: Denies rashes or pruritus. PSYCHIATRIC: Denies any suicidal or homicidal ideation. Denies hallucinations. PHYSICAL EXAM GENERAL APPEARANCE: The patient is awake, alert, and oriented, in no acute cardiopulmonary distress. NEUROLOGICAL: Cranial nerves II-XII grossly intact. Motor is 5/5 in bilateral upper and lower extremities proximal to distal. No sensory deficits. HEENT: Face is symmetric. Pupils are equal and reactive. Extraocular movements are intact. NECK: Supple. No JVD. No thyromegaly. No submental, submandibular, pre- /postauricular, occipital or supraclavicular lymphadenopathy. CHEST: Normal chest expansion. No Telemetry. LUNGS: Absence of any rales, rhonchi or any wheezing. CARDIOVASCULAR: Regular. S1 and S2 normal. No appreciable rubs, murmurs or gallops. ABDOMEN: Soft, nontender, and nondistended. There is no rebound, voluntary guarding, or rigidity. : Deferred. No Silva. EXTREMITIES: Non-edematous and not cyanotic. No clubbing. Good capillary refill. SKIN: No skin breakdown. Vital Signs (last 8hr) Date Time Temp Pulse Resp B/P (MAP) Pulse Ox O2 Delivery O2 Flow Rate FiO2 06/06/24 08:24 98.1 73 17 100/43 96 Room Air LABS: Laboratory: Test 06/06/24 06:48 06/05/24 15:58 06/05/24 15:50 Range/Units White Blood Count 6.9 4.8-10.8 K/uL Red Blood Count 3.94 L 4.00-5.50 MIL/uL Hemoglobin 12.0 12.0-16.0 g/dL Hematocrit 36.0 36-48 % Mean Corpuscular Volume 91.4 79-99 fL Mean Corpuscular Hemoglobin 30.5 27.0-33.0 pg Mean Corpuscular Hemoglobin Concent 33.3 32.0-36.0 g/dL Red Cell Distribution Width 12.9 11.0-15.5 % Platelet Count 172 130-400 K/uL Mean Platelet Volume 9.1 7.5-10.5 fL Immature Granulocyte % (Auto) 0.6 0-1 % Neutrophils (%) (Auto) 50.3 40.0-77.0 % Lymphocytes (%) (Auto) 32.8 21.0-51.0 % Monocytes (%) (Auto) 13.1 H 3.0-13.0 % Eosinophils (%) (Auto) 2.9 0.0-8.0 % Basophils (%) (Auto) 0.3 0.0-5.0 % Neutrophils # (Auto) 3.5 1.8-7.7 K/uL Lymphocytes # (Auto) 2.3 1.0-4.8 K/uL Monocytes # (Auto) 0.9 0.1-1.0 K/uL Eosinophils # (Auto) 0.20 0.00-0.70 K/uL Basophils # (Auto) 0.02 0.00-0.20 K/uL Absolute Immature Granulocyte (auto 0.04 0-1 K/uL Nucleated Red Blood Cells 0.0 0.0-0.19 % Sodium Level 141 136-145 mmol/L Potassium Level 2.7 *L 3.5-5.1 mmol/L Chloride Level 107 101-111 mmol/L Carbon Dioxide Level 30 21-32 mmol/L Blood Urea Nitrogen 15 7-18 mg/dL Creatinine 0.7 0.5-1.0 mg/dL Glomerular Filtration Rate Calc 89 >90 mL/min Random Glucose 87 70-105 mg/dL Total Calcium 8.5 8.5-10.1 mg/dL Magnesium Level 1.50 L 1.80-2.40 mg/dL Total Bilirubin 0.7 # 0.2-1.0 mg/dL Aspartate Amino Transf (AST/SGOT) 115 H 10-37 U/L Alanine Aminotransferase (ALT/SGPT) 62 # 12-78 U/L Alkaline Phosphatase 104 # 50-136 U/L Total Protein 5.7 L 6.0-8.3 g/dL Albumin 2.8 L 3.5-5.0 g/dL Prothrombin Time 10.8 9.6-11.6 SEC Prothromb Time International Ratio 1.02 0.85-1.15 Activated Partial Thromboplast Time 26.5 26.3-35.5 SEC Direct Bilirubin 0.1 0.0-0.3 mg/dL Lipase 22 16-77 U/L Urine Color YELLOW YELLOW Urine Appearance CLOUDY H CLEAR Urine pH 6.0 5.0-8.0 Urine Specific [place] 1.028 1.001-1.031 Urine Protein 70 H NEGATIVE mg/dL Urine Glucose (UA) NEGATIVE NEGATIVE mg/dL Urine Ketones NEGATIVE NEGATIVE mg/dL Urine Occult Blood MODERATE H NEGATIVE Urine Nitrate NEGATIVE NEGATIVE Urine Bilirubin NEGATIVE NEGATIVE mg/dL Urine Urobilinogen 2.0 H 0.2-1.0 mg/dL Urine Leukocyte Esterase 500 H NEGATIVE Randy/uL Urine RBC 26-50 H 0-1 /HPF Urine WBC 26-50 H 0-1 /HPF Urine Squamous Epithelial Cells MOD 0-2 /HPF Urine Non-Squamous Epithelial Cells 4 0-2 /HPF Urine Bacteria RARE None Seen /HPF Urine Hyaline Casts 2-5 H 0-1 /LPF /LPF Urine Other Casts 3 None Seen /LPF Current Medications Medications (Trade) Dose Ordered Sig/Con Route PRN Reason Start Time Stop Time Status Last Admin Dose Admin Acetaminophen (TYLenol 325MG TAB) 650 mg Q4H PRN PO MILD PAIN (1-3) 06/05/24 19:30 07/05/24 19:29 Acetaminophen (TYLenol 325MG TAB) 650 mg Q6H PRN PO TEMPERATURE GREATER THAN 101.5 06/05/24 19:30 07/05/24 19:29 Allopurinol (ZYLOprim 100MG) 100 mg DAILY PO 06/07/24 09:00 07/07/24 08:59 Ceftriaxone Sodium 1 gm/ Sodium Chloride 50 ml @ 100 mls/hr BID IV 06/05/24 21:00 06/05/24 19:33 DC Ceftriaxone Sodium (ROCEphine 1G INJ) 1 gm BID IVPB 06/05/24 21:00 06/15/24 20:59 06/06/24 08:05 1 GM Famotidine (Pepcid 20mg Vial) 20 mg BID IV 06/05/24 21:00 07/05/24 20:59 06/06/24 08:05 20 MG Home Med (Home Medication) Biotin 1 TAB DAILY PO 06/07/24 09:00 07/07/24 08:59 Home Med (Home Medication) ZINC SULFATE 50 MG DAILY PO 06/07/24 09:00 07/07/24 08:59 Hydralazine HCl (APRESOLine 20MG INJ) 5 mg Q6H PRN IV ADMINISTER FOR SBP > 160 06/06/24 11:30 07/06/24 11:29 Magnesium Sulfate 50 ml @ 0 mls/hr PROTOCOL IV 06/06/24 11:30 07/06/24 11:29 06/06/24 12:40 25 MLS/HR Magnesium Sulfate 50 ml @ 0 mls/hr PROTOCOL PRN IV OTHER [SEE ORDER COMMENTS] 2/25/25 19:30 06/06/24 11:16 DC Metoprolol Tartrate (loprESSOR) 25 mg BID PO 06/06/24 21:00 07/06/24 20:59 Ondansetron HCl (zoFRAN 4MG INJ) 4 mg Q6H PRN IV NAUSEA/VOMITING 06/05/24 19:30 07/05/24 19:29 06/06/24 11:29 4 MG Potassium Chloride 100 ml @ 100 mls/hr AD PRN IV POTASSIUM PROTOCOL 06/05/24 19:30 07/05/24 19:29 06/06/24 08:06 100 MLS/HR Potassium Chloride (K-Dur/Klor-Con 20meq) 20 meq AD PRN PO POTASSIUM PROTOCOL 06/05/24 19:30 07/05/24 19:29 06/06/24 13:44 20 MEQ Potassium Chloride (KCl 10% Elixir 20meq/15ml) 20 meq AD PRN PO POTASSIUM PROTOCOL 06/05/24 19:30 07/05/24 19:29 Sodium Chloride 1,000 ml @ 100 mls/hr Q10H IV 06/05/24 19:30 07/05/24 19:29 06/06/24 12:42 100 MLS/HR Vitamin B Complex/ Folic Acid (B Complex) 1 cap DAILY PO 06/07/24 09:00 07/07/24 08:59 DIAGNOSTICS / RADIOLOGY: [ ] ASSESSMENT: Acute urinary tract infection with hematuria POA UTI POA Left kidney stone POA Possible enterocolitis POA Dehydration POA Left adrenal adenoma per CT POA Hypertension POA Gout POA History of kidney stone with left kidney surgery POA Mild protein calorie malnutrition Morbid obesity BMI 37 POA Electrolyte derangement hypomagnesemia, hypokalemia PLAN: Admit: Medical floor with tele condition: Guarded Status: Full code IVF: NS at 75 mL/hour decreased Consultants urology Antibiotics: Rocephin1 g every24 hours will follow up urine cultures cont with Flomax 0.4 mg po daily Labs cbc, cmp, mag+ will repeat potassium and mag at 1800 Replace electrolytes as needed as per protocol to keep potassium above 4.0 magnesium 2.0. PRN: MEDICATIONS Tylenol 650 mg po every 4 hrs for fever zofran 4 mg IV every 6 hrs for n/v Hydralazine 5 mg IV every 4 hrs systolic pressure > 160 bowel regiment: lactulose 20 gm PO BID PRN constipation Supportive measures: DVT ppx, GI ppx all questions answered Supervising MD: Dr. rogers This document was generated in part using voice recognition software, occasional wrong word or sound alike substitutions may have occurred due to the inherent limitations of voice recognition software. Read the chart carefully and recognize using context, where the substitutions have occurred. Although every effort was made to edit the content, recapper and typing errors may occur ATTESTATION BY PHYSICIAN I have seen and examined the patient. I reviewed the documentation, medical deci claudette making, and treatment plan as noted by the mid-level provider above. I agree with the findings and plan of care. LOR BOONE MD, ELIZABETH NP Jun 06, 2024 14:23
[2024-06-06] MEDS ORDERED: LACTULOSE 20 GM/30 ML UDCUP PO PRN (14:30)
[2024-06-06] MEDS: tamSULOsin HCL 0.4 MG CAP.ER.24H PO ONE (15:00)
[2024-06-06 18:35] LABS: MAGNESIUM 1.7 mg/dL (1.80-2.40); POTASSIUM 3.8 mmol/L (3.5-5.1)
--- NOTE | 2024-06-06 21:40 | NUR ---
DR. STOLL AT BEDSIDE
--- NOTE | 2024-06-06 21:45 | NUR ---
PER DR STOLL, NO SURGICAL INTERVENTIONS AT THIS TIME. PATIENT AGREES.
[2024-06-06] MEDS: metoPROLOL tartRATE 25 MG TAB PO SCH (23:57)
[2024-06-07] VITALS: BP 116/57; PULSE 76; RESP 20; TEMP 97.9
[2024-06-07 04:00] VITALS: BP 100/58; PULSE 76; RESP 20; TEMP 97.8
[2024-06-07 04:29] LABS: BASOPHILS # (AUTO) 0.03 K/uL (0.00-0.20); BASOPHILS % (AUTO) 0.5 % (0.0-5.0); EOSINOPHILS # (AUTO) 0.37 K/uL (0.00-0.70); EOSINOPHILS % (AUTO) 5.9 % (0.0-8.0); HEMATOCRIT 33.6 % (36-48); IMMATURE GRANULOCYTE ABSOLUTE 0.02 K/uL (0-1); LYMPHOCYTES # (AUTO) 2.7 K/uL (1.0-4.8); LYMPHOCYTES % (AUTO) 43.1 % (21.0-51.0); MEAN CORPUSCULAR HEMOGLOBIN 30.2 pg (27.0-33.0); MEAN CORPUSCULAR HGB CONC 33.3 g/dL (32.0-36.0); MEAN CORPUSCULAR VOLUME 90.6 fL (79-99); MONOCYTES # (AUTO) 0.8 K/uL (0.1-1.0); MONOCYTES % (AUTO) 12.8 % (3.0-13.0); NEUTROPHILS # (AUTO) 2.4 K/uL (1.8-7.7); NEUTROPHILS % (AUTO) 37.4 % (40.0-77.0); PLATELET COUNT (AUTO) 166 K/uL (130-400); RED BLOOD CELL COUNT(AUTO) 3.71 MIL/uL (4.00-5.50); RED CELL DISTRIBUTION WIDTH 12.8 % (11.0-15.5); WHITE BLOOD COUNT (AUTO) 6.3 K/uL (4.8-10.8)
[2024-06-07 04:42] LABS: INR 0.99 (0.85-1.15); PROTHROMBIN TIME 10.5 SEC (9.6-11.6)
[2024-06-07 05:18] LABS: ALBUMIN 2.6 g/dL (3.5-5.0); BILIRUBIN,TOTAL 0.2 mg/dL (0.2-1.0); CREATININE 0.8 mg/dL (0.5-1.0); MAGNESIUM 1.7 mg/dL (1.80-2.40); POTASSIUM 3.8 mmol/L (3.5-5.1); TOTAL PROTEIN, SERUM 5.7 g/dL (6.0-8.3)
[2024-06-07 08:00] VITALS: BP 119/61; PULSE 68; RESP 20; TEMP 97.9; O2SAT 96
[2024-06-07] MEDS: ZINC SULFATE PO SCH (09:00)
--- NOTE | 2024-06-07 09:08 | CONS ---
REQUESTING PHYSICIAN: Ismael Tay MD REASON FOR CONSULTATION: Left-sided kidney stone as well as left flank pain. 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 Currently, the pain has resolved. Nausea has resolved. Vomiting has resolved. Diarrhea has resolved. She feels completely well. She has a history of kidney stones on left side with a known stone burden that is unresolved for many years. She has been treated in [place] as well as [facility] and currently has no active flank pain or discomfort whatsoever, feels completely fine, has no dysuria and is reluctant to undergo any intervention. At this time, would prefer to return to [place], [place] if she is to undergo any surgical intervention at all. ALLERGIES: None. She has been currently treated with IV Rocephin, famotidine, as well as her home medications. PAST MEDICAL HISTORY: Hypertension, gout. PAST SURGICAL HISTORY: Tonsillectomy, adenoidectomy, percutaneous nephrostolithotomy, umbilical hernia repair. SOCIAL HISTORY: Lives with her . FAMILY HISTORY: Negative for kidney stones. REVIEW OF SYSTEMS: No shortness of breath, no chest pain. Her appetite is good. No nausea, vomiting, constipation, or diarrhea. No headaches, dizziness, or nosebleeds. No joint pain, joint swelling, limitation of movement, night sweats, fever, chills, or skin rash. PHYSICAL EXAMINATION: GENERAL: Well-developed female, in no distress. VITAL SIGNS: Her current temperature is 98, blood pressure is 130/70 with a pulse of 82. NECK: Has no adenopathy or supraclavicular masses palpable. LUNGS: Lung martinez are clear to auscultation and percussion. CARDIAC: Heart sounds are best heard in the fifth intercostal space. ABDOMEN: Full, soft, nontender. BACK: No CVA tenderness. ABDOMEN: Obese. EXTERNAL GENITALIA: Deferred. LABORATORY DATA: Reviewed in detail. Her white count is 7.6, hematocrit is 41, platelet count is 211. Sodium 141, potassium 3.0, BUN and creatinine are 19/0.8. Urinalysis shows clear yellow urine. Protein, glucose, ketones, nitrites are all negative. Leukocyte esterase is high as is rbc's and white cells, about 26 of these per high-power field. There are no bacteria in her urine. IMAGING STUDIES: Reviewed today. CT scan of the abdomen and pelvis showed left renal nodule, suggesting a renal adenoma on the left hand side. She has no hydronephrosis, right or left. She has multiple stable stones in the left renal pelvis, causing no obstruction. There is cortical scarring on the left kidney, especially related to prior percutaneous nephrostomy tube placement, as well as prior surgical intervention on kidney stones in the past. ASSESSMENT: * Nonobstructing left-sided kidney stone. * Resolved renal colic. RECOMMENDATIONS: * No surgical urological intervention is planned at this time. * Urology will sign off. * The patient will follow up with her treating physicians in [place] on her return. Thank you for the opportunity of providing consultation on your patient. Sincerely, TID: [id number] RECEIPT: [id number]
[2024-06-07] MEDS: tamSULOsin HCL 0.4 MG CAP.ER.24H PO SCH (09:23)
[2024-06-07] MEDS: VITAMIN B COMPLEX 1 CAPSULE PO SCH (09:23)
[2024-06-07] MEDS: alloPURInol 100 MG TABLET PO SCH (09:23)
[2024-06-07] MEDS ORDERED: TAMS-1 PO (10:52)
[2024-06-07] MEDS ORDERED: CEFD300C3 PO (10:52)
--- NOTE | 2024-06-07 11:02 | DS ---
Discharge Summary Hospital Course Summary: This is a 78-year-old female that presents in ED on 06/05/2024 with chief complaints of left flank pain nausea and vomiting and diarrhea. ER workup was consistent with left kidney stone. Urology was consulted we will follow his recommendations. We will replace electrolytes. Patient is fully awake alert oriented x3. Discussed plan of care verbalized understanding. 06/07/2024. Patient is doing much better today. Urology is not going to do any surgical intervention on this admission. Patient is from out of town we will follow-up with her PCP Molly Chaidez, patient will be discharged on oral antibiotics cefdinir 300 mg p.o. b.i.d. for five days. Patient has no white count afebrile denies any active flank pain or discomfort whatsoever feels completely fine has no dysuria. Patient is clinically stable for discharge. Procedure(s): REASON: L flank pain ORDERING PHYSICIAN: ISAIAS MEEYRS PROCEDURE: ABD PEL WO - CT ABDOMEN/PELVIS W/O CONTRAST CT ABDOMEN/PELVIS W/O CONTRAST HISTORY: Bilateral flank pain COMPARISON: None TECHNIQUE: Multiple sequential axial images of the abdomen and pelvis were obtained from the dome of the diaphragm through symphysis pubis. Patient was not given contrast through intravenous route. Oral contrast was not given. FINDINGS: No pleural effusion is seen bilaterally. There is no evidence of parenchymal disease or pulmonary nodule of the visualized lower lungs. Degenerative changes of the thoracolumbar spine are present. The heart is not enlarged. A small hiatal hernia is seen. Liver measures 18 cm. There is left adrenal nodule measuring 2 cm suggestive of adrenal adenoma. Postcholecystectomy changes are seen. There is right renal cyst measuring 2.3 cm. Bilateral renal cortical scarring is seen. The liver, spleen, right adrenal gland and pancreas are unremarkable. There is no evidence of hydronephrosis bilaterally. There are bilateral renal stones with the largest in the left kidney measuring 2.7 cm. There is diverticulosis. Fecal material is seen in the colon. There are normal size retroperitoneal and mesenteric lymph nodes. No ascites is seen. Atherosclerotic changes are present. Pelvic sidewalls are symmetric bilaterally. Bladder is poorly distended. IMPRESSION: 1. Left renal nodule measuring 2 cm suggestive adrenal adenoma. No hydronephrosis is seen. There are multiple left renal pelvic stones. Bilateral renal cortical scarring is seen. There is fluid-filled with small bowel loops and colon may be related to enterocolitis. There is diverticulosis. Assessment/Plan: discharged dx's; Acute urinary tract infection with hematuria POA UTI POA we will be discharged on oral antibiotics for five days Cefdinir Left kidney stone POA no surgical intervention Possible enterocolitis POA Dehydration POA Left adrenal adenoma per CT POA Hypertension POA Gout POA History of kidney stone with left kidney surgery POA Mild protein calorie malnutrition Morbid obesity BMI 37 POA Electrolyte derangement hypomagnesemia, hypokalemia PLAN: ADMISSION DATE: 06/05/24 DISCHARGE DATE: 06/07/24 DISPOSITION: home CONDITION: stable AGRONOMY SUPERVISOR(S): Urology DR Han FOLLOW UP APPOINTMENT(S): She will follow-up with her PCP in [place]. She will need a referral to Urology. PROCEDURES: No surgical intervention on this admission IMAGING (S) report attached to summary :CT abdomen and pelvis MICROBIOLOGY: report attached to summary; ACTIVITY: ab sherin HOME MEDICATIONS: reviewed remain the same CHANGES ON HOME MEDICATIONS: None NEW MEDICATIONS Cefdinir 300 Mg Capsule bid for 5 days Tamsulosin HCl (Flomax) 0.4 Mg Cap.er.24h x 7 days TEACHING: Side effects and adverse reactions of new medication. Emergency instructions: The patient was instructed to present to the nearest Emergency Department or call 911 should their symptoms return or worsen. Home Medications: Reported Medications Biotin (Biotin) 5,000 Mcg Tab.rapdis, 1 TAB PO DAILY for 30 Days, #30 TAB 0 Refills 06/06/24 Vitamin B Complex (B Complex) 1 Cap Capsule, 1 CAP PO DAILY for 30 Days, #30 CAP 0 Refills 06/06/24 Zinc Sulfate (Zinc) 50 Mg Zinc (220 Mg) Tablet, 1 TAB PO DAILY for 30 Days, #30 TAB 0 Refills 06/06/24 Hydrochlorothiazide (Hydrochlorothiazide) 12.5 Mg Tablet, 12.5 MG PO DAILY, TAB 06/06/24 Allopurinol (Allopurinol) 100 Mg Tablet, 1 TAB PO DAILY for 30 Days, #30 TAB 0 Refills 06/05/24 Metoprolol Tartrate (Metoprolol Tartrate) 25 Mg Tablet, 1 TAB PO BID for 30 Days, #60 TAB 0 Refills 06/05/24 Discontinued Reported Medications Hydrochlorothiazide (Hydrochlorothiazide) 25 Mg Tablet, 25 MG PO BID, TAB 06/05/24 New Medications: Cefdinir (Cefdinir) 300 Mg Capsule 1 CAP PO BID for 5 Days, #10 CAP 0 Refills Tamsulosin HCl (Flomax) 0.4 Mg Cap.er.24h 0.4 MG PO DAILY for 7 Days, #[address]SU[address] Continued Medications: Allopurinol (Allopurinol) 100 Mg Tablet 1 TAB PO DAILY for 30 Days, #30 TAB 0 Refills Biotin (Biotin) 5,000 Mcg Tab.rapdis 1 TAB PO DAILY for 30 Days, #30 TAB 0 Refills Hydrochlorothiazide (Hydrochlorothiazide) 12.5 Mg Tablet 12.5 MG PO DAILY, TAB Metoprolol Tartrate (Metoprolol Tartrate) 25 Mg Tablet 1 TAB PO BID for 30 Days, #60 TAB 0 Refills Vitamin B Complex (B Complex) 1 Cap Capsule 1 CAP PO DAILY for 30 Days, #30 CAP 0 Refills Zinc Sulfate (Zinc) 50 Mg Zinc (220 Mg) Tablet 1 TAB PO DAILY for 30 Days, #30 TAB 0 Refills Time spent arranging discharge: 31-60 minutes ATTESTATION BY PHYSICIAN I have seen and examined the patient. I reviewed the documentation, medical decision making, and treatment plan as noted by the mid-level provider above. I agree with the findings and plan of care. LOR BOONE MD, ELIZABETH NP Jun 07, 2024 11:02
[2024-06-07 12:00] VITALS: BP 121/66; PULSE 80; RESP 18; TEMP 97.5
[2024-06-08 08:13] LABS: C DIFFICILE TOXIN A/B Not Detected (Not Detected); ENTEROAGGREGATIVE ECOLI Not Detected (Not Detected); GIARDIA LAMBLIA Not Detected (Not Detected); PLESIOMONAS SHIGELOIDES Not Detected (Not Detected); SAPOVIRUS Not Detected (Not Detected); SHIGELLA/ENTEROINVASIVE E COLI Not Detected (Not Detected); VIBRIO Not Detected (Not Detected); VIBRIO CHOLERAE Not Detected (Not Detected)
== END 2024-06-07 16:45 | disposition home or self-care (01) ==
LOC: EDH 13:54 → EDHIP 19:17 → INTOOBSV 19:17 → 3AH 06-06 01:06
PROVIDERS: ADMIT Internal Medicine; ATTEND Internal Medicine
DX: N39.0 Urinary tract infection, site not specified (principal); R31.9 Hematuria, unspecified; N20.0 Calculus of kidney; I10 Essential (primary) hypertension; M10.9 Gout, unspecified; D35.02 Benign neoplasm of left adrenal gland; E86.0 Dehydration; R11.2 Nausea with vomiting, unspecified; E44.1 Mild protein-calorie malnutrition; E83.42 Hypomagnesemia; E87.6 Hypokalemia; E66.01 Morbid (severe) obesity due to excess calories; K57.30 Diverticulosis of large intestine without perforation or abscess without bleeding; Z68.37 Body mass index [BMI] 37.0-37.9, adult; Z79.899 Other long term (current) drug therapy; Z98.890 Other specified postprocedural states
CPT/HCPCS: 96361 ×3; 96375 ×2; 99284; 80076; 80048; 83690; 85025 ×3; 85610 ×2; 85730; 87086 ×2; 81001; 36415 ×3; 74176; 96365; 84132; 96376 ×2; 96366 ×3; 96367; 96368; 83735 ×4; 80053 ×2; 87507; J3490 ×4; J7030 ×2; J0696 ×4; J1885; J3475 ×2; J2405; J3480; G0378 ×4; 99285